=== PATIENT | female | born 1940 | race Caucasian/White ===

== ENCOUNTER → 2016-03-26 | Outpatient (CLI) | payer OTHER, MEDICARE ==
[~2016-03-26] MED LIST: ASCA500 PO; B-CO-25 PO; CINN1CAP2 PO; MAGN400T6 PO; METF1TAB53 PO; MISCTAB78 PO; OMEG10007 PO; SIMV40TA2 PO; TUMERIC CURCUMIN PO
--- NOTE | 2016-03-26 13:23 | Discharge Instructions ---
Discharge Instructions Procedure Procedure Date: Mar 26, 2016. Reason for visit: Left Calcifications. Discharge Discharge Date: Mar 26, 2016. Discharge Diagnosis: status post breast biopsy Instructions Activity Recommendations: Additional Limitations (see below) Return to School/Work: no limitations Recommended Home Diet: No Limitations Provider Instructions: ACTIVITY RECOMMENDATIONS: * No lifting, pushing, pulling or exercising the affected side for three days. RETURN TO SCHOOL/WORK: * You may return to work/school after the procedure, but do not perform any strenuous activities for 24 to 48 hours. MEDICATIONS: * Tylenol (two 325 mg) every four to six hours if needed for mild pain (if not allergic to Tylenol). DIET: * Resume previous diet. SPECIAL CARE INSTRUCTIONS: * Keep biopsy site dry for 24 hours. May shower after 24 hours, but do not soak (bathe) incision. * May remove Tegaderm (plastic patch) tomorrow AFTER showering. * Leave the steri-strips on for one week. Allow the steri-strips to fall off by themselves. If not off after one week, you may remove them. You may place a Bandaid crosswise over the strips, if desired. * Apply ice 10 minutes on and 10 minutes off as needed. * Wear a bra at bedtime to sleep more comfortably for 2-3 days. * Your referring physician should have the results after approximately 5 to 7 business days. * Call for unusual bleeding, fever, drainage, etc or if you have any questions call during normal business hours or after hours call Dr Pike, . FOLLOW UP VISIT: Follow-up with Referring Physician as scheduled. Allergies Coded Allergies: No Known Allergies (Unverified , 09/12/15) Apolonia Donovan Recommendations: Call your doctor if: * Temperature above 101 degrees * Pain not relieved by pain medicine ordered * There is increased drainage or redness from any incision * You have any unanswered questions or concerns. Your Doctors Instructions noted above were prepared by provider Rosio Pike. Patient Signature Section: Patient Instructions Signature Page Yuliet Rogers Patient (or Guardian) Signature/Date: I have read and understand the instructions given to me by my caregivers. Caregiver/RN/Doctor Signature/Date: The above-named patient and/or guardian has received patient instructions on this date. + Original Patient Signature Page (only) stays with chart. Please make copy for patient.
--- NOTE | 2016-03-26 15:47 | MAMMOGRAPHY REPORT ---
THIS REPORT HAS BEEN AMENDED. STEREOTACTIC GUIDED BIOPSY LEFT BREAST: 03/26/2016 CLINICAL HISTORY: Indeterminate calcifications in the left inferior posterior breast. PATIENT CONSENT: The procedure, risks, benefits, and alternatives of stereotactic biopsy with clip p lacement were discussed with the patient, and verbal and written consent was obtained. A timeout wa s performed immediately prior to the procedure. PROCEDURE DESCRIPTION: With stereotactic guidance, aseptic technique, and lidocaine as a local anest hetic (1% lidocaine to anesthetize the skin and 1% lidocaine with epinephrine to anesthetize the simon per tissues), the area of concern in the left inferior posterior breast was sampled multiple times w ith a 9-gauge vacuum-assisted biopsy needle (Flossonic). The path of approach was caudocranial. The specimen radiograph demonstrates calcifications to be present in the samples. A metallic marker clip was placed at the biopsy site. This was confirmed on postprocedure mammograms. Direct pressu re was applied at the biopsy site and hemostasis was readily achieved. The patient tolerated the pr ocedure without complication. She was given wound care instructions. COMPARISON: Comparison is made to exams dated: 03/12/2016 mammogram, 09/12/2015 mammogram, 08/08/2015 mammogram, 07/31/2015 mammogram, 07/25/2014 mammogram, and 07/19/2013 mammogram - [facility]. IMPRESSION: STEREOTACTIC GUIDED BIOPSY Stereotactic guided biopsy of indeterminate calcifications in the left inferior posterior breast, wi th clip placement. The patient will receive pathology results from her referring physician. Rosio Pike M.D. ah/:03/26/2016 13:25:57 Hydraulic Blocker: Mallory Werner, [facility] AMENDMENT: 04/09/2016 Rosio Pike M.D. The pathology from stereotactic biopsy of left breast calcifications was reviewed on 04/09/2016. The pathology shows atypical ductal hyperplasia with associated microcalcifications. Given the presenc e of atypia, surgical excision is recommended. Note that there was superior and lateral migration o f the biopsy clip, as discussed on the diagnostic mammogram report dated 03/26/2016.
--- NOTE | 2016-03-26 15:47 | MAMMOGRAPHY REPORT ---
UNILATERAL LEFT DIGITAL DIAGNOSTIC MAMMOGRAM: 03/26/2016 CLINICAL HISTORY: Status post left breast stereotactic biopsy. TECHNIQUE: Postprocedural left CC and ML views were obtained. COMPARISON: Comparison is made to exams dated: 03/12/2016 mammogram, 09/12/2015 mammogram, 08/17/2015 mammogram, and 07/31/2015 mammogram - [facility]. BREAST COMPOSITION: There are scattered areas of fibroglandular density in the left breast. FINDINGS: A new biopsy marker clip is seen in the left upper outer quadrant status post stereotacti c biopsy of the left inferior posterior calcifications. The postbiopsy changes are located at the s ite of the biopsied calcifications on the cc view. However, there appears to be lateral migration o f the biopsy marker clip by approximately 2.6 cm from the biopsy site. Additionally, there is super ior migration of the clip by approximately 7 cm, likely due to accordion effect. No significant pos tbiopsy hematoma is seen. IMPRESSION: POST PROCEDURE IMAGING FOR MARKER PLACEMENT New biopsy marker clip status post stereotactic biopsy of left inferior posterior calcifications. P athology results are pending. Approximately 10% of breast cancers are not detected with mammography. A negative mammographic repor t should not delay biopsy if a clinically suggestive mass is present. Roiso Pike M.D. ah/:03/26/2016 13:40:08 Business Consultant: Mallory Werner, [facility] BI-RADS Code: Post Procedure Imaging For Marker Placement
== END | disposition home or self-care (01) ==
LOC: C.MAMM 12:38
PROVIDERS: ATTEND Surgery
DX: R92.1 Mammographic calcification found on diagnostic imaging of breast (principal); N60.92 Unspecified benign mammary dysplasia of left breast; C18.9 Malignant neoplasm of colon, unspecified

== ENCOUNTER → 2016-06-23 | Outpatient (CLI) | payer OTHER, MEDICARE ==
[~2016-06-23] MED LIST changes: +ARM1 PO; +OPTIRAY 320 IV PRN
--- NOTE | 2016-06-23 17:02 | DIAGNOSTIC IMAGING REPORT ---
CT OF THE ABDOMEN AND PELVIS WITH CONTRAST CLINICAL HISTORY: Colon cancer. Breast cancer. COMPARISON STUDY: CT of the abdomen and pelvis May 14, 2015. TECHNIQUE: Following IV administration of 115 mL of Optiray-320, axial images of the abdomen and pelvis were obtained from the lung bases to the proximal femurs. Images were reviewed in the axial, sagittal, and coronal planes. IV contrast was administered without complication. Oral contrast was administered. CT DOSE: 1191.15 mGy.cm FINDINGS: The chest will be reported separately. Fatty infiltration of the liver is noted. The spleen, adrenal glands, kidneys and pancreas are normal. There is no biliary ductal dilatation status post cholecystectomy. There is no evidence for a bowel obstruction. Postsurgical findings involving the cecum are noted. There are no enlarged abdominal or pelvic lymph node. There is left colon diverticulosis without evidence for acute diverticulitis. No ascites is present. No suspicious osseous lesion is identified. IMPRESSION: No evidence of metastatic disease within the abdomen or pelvis. Electronically signed by: Giancarlo Cullen M.D. 06/23/2016 5:00 PM Dictated Date/Time: 06/23/2016 4:29 PM
--- NOTE | 2016-06-23 17:02 | DIAGNOSTIC IMAGING REPORT ---
CT OF THE CHEST WITH IV CONTRAST CLINICAL HISTORY: Breast cancer. Colon cancer. COMPARISON STUDY: Chest CT May 14, 2015. TECHNIQUE: Following IV administration of 115 mL of Optiray-320, helical axial images of the chest were obtained. Images were viewed in the axial, sagittal and coronal planes. IV contrast was administered without complication. FINDINGS: No enlarged axillary, mediastinal or hilar lymph nodes are present. The heart is mildly enlarged. This extensive coronary artery calcification. There are postsurgical findings within the left breast. The central airways are patent. Dependent airspace opacities reflect atelectasis. There are no suspicious pulmonary nodules. The bony structures are unremarkable. There is fatty infiltration of the liver. IMPRESSION: No evidence of metastatic disease within the chest. Electronically signed by: Giancarlo Cullen M.D. 06/23/2016 5:00 PM Dictated Date/Time: 06/23/2016 4:48 PM
== END | disposition home or self-care (01) ==
LOC: C.CTS 15:33
PROVIDERS: ATTEND Internal Medicine Hematology & Oncology
DX: C50.912 Malignant neoplasm of unspecified site of left female breast (principal)

== ENCOUNTER → 2016-08-05 | Outpatient (CLI) | payer OTHER, MEDICARE ==
[~2016-08-05] MED LIST changes: -OPTIRAY 320 IV PRN
--- NOTE | 2016-08-05 16:19 | MAMMOGRAPHY REPORT ---
BILATERAL DIGITAL DIAGNOSTIC MAMMOGRAM TOMOSYNTHESIS WITH CAD AND TARGETED RIGHT ULTRASOUND: 08/06/19 17 CLINICAL HISTORY: 76-year-old woman with a personal history of left breast cancer diagnosed in the a nterior periareolar breast, status post lumpectomy performed in August 2015. Recently, she was found to have clustered microcalcifications in the lateral posterior left breast for which stereotactic bi opsy was performed. This yielded atypia at needle biopsy but surgical excision yielded DCIS. No ra diation therapy. Also time of annual right mammography. TECHNIQUE: Bilateral CC and MLO 2-D digital and tomosynthesis images, spot magnification left CC an d ML views were obtained. Current study was also evaluated with a Computer Aided Detection (CAD) sy stem. COMPARISON: Comparison is made to exams dated: 03/26/2016 mammogram, 08/17/2015 mammogram, 08/08/2015 u ltrasound, 08/08/2015 mammogram, 07/31/2015 mammogram, and 07/25/2014 mammogram - [facility]. BREAST COMPOSITION: There are scattered areas of fibroglandular density in both breasts. FINDINGS: There is expected architectural distortion and surgical clips in the anterior 9:00 left br east, at the site of prior lumpectomy. New expected architectural distortion is seen in the far pos terior inferior left breast, at the site of second surgical excision which yielded DCIS. There are benign coarse and rim calcifications throughout the left breast and to a lesser degree the right rashad ast. No new suspicious grouping or cluster of microcalcifications is seen bilaterally. There are m oderate vascular calcifications in the breasts. There is a 3.7 mm nodular asymmetry in the lateral anterior right breast, best seen on the CC view (tomosynthesis slice 25), for which additional evalu ation with ultrasound was performed. No unexpected architectural distortion is seen bilaterally. Real-time high-resolution sonographic evaluation was performed in the lateral right breast. In the 10:00 periareolar axis, there is an oval parallel hypoechoic cystic-appearing mass measuring 2.5 x 2 .6 x 1.7 mm. No internal vascularity is demonstrated. In the 9:00 right breast, 1 cm from the nipp le, there is an oval parallel circumscribed anechoic benign simple cyst measuring 3.6 x 1.6 x 3.5 mm . It is unclear which of these benign-appearing masses correlate with the nodular mammographic asym metry. Nevertheless, a short interval follow-up diagnostic right mammogram and repeat targeted ultr asound is recommend to ensure stability in 6 months. IMPRESSION: ACR-BI-RADS CATEGORY 3: PROBABLY BENIGN, TARGETED ULTRASOUND ACR-BI-RADS CATEGORY 3: IN OBABLY BENIGN Follow-up bilateral diagnostic mammograms and repeat targeted ultrasound in the right 9:00 and 10:00 axes is recommended in 6 months. Postsurgical changes in the left breast should be reassessed, inc luding spot magnification views to exclude any new microcalcifications. Repeat assessment of a smal l 3.7 mm nodular asymmetry in the lateral anterior right breast should also be performed at that alma e. These results and recommendations were discussed with the patient at the time of the exam. She tent atively scheduled a follow-up appointment prior to leaving our department. Approximately 10% of breast cancers are not detected with mammography. A negative mammographic repor t should not delay biopsy if a clinically suggestive mass is present. Jackeline Ahmadi M.D. ay/:08/05/2016 15:12:51 College Tutor: Pita TALBERT(Jojo)(Frances), [facility] letter sent: Follow Up Recommended 3 BI-RADS Code: ACR-BI-RADS Category 3: Probably Benign Ultrasound BI-RADS: ACR-BI-RADS Category 3: P robably Benign
== END | disposition home or self-care (01) ==
LOC: C.MAMM 09:03
PROVIDERS: ATTEND Surgery
DX: Z85.3 Personal history of malignant neoplasm of breast (principal); N64.9 Disorder of breast, unspecified

== ENCOUNTER → 2016-09-12 | Outpatient (CLI) | payer OTHER, MEDICARE ==
[2016-09-12 13:20] LABS: BASO % 0.4 %; BASO ABS # 0.02 K/uL (0-0.2); COMPLETE YES; EOS % 1.9 %; HEMATOCRIT 40.5 % (37-47); IG% 0.2 %; LYMPH % 37.7 %; LYMPH ABS # 2.03 K/uL (1.2-3.4); MEAN CELL VOLUME 93.5 fL (80-100); MEAN CORPUSCULAR HEMOGLOBIN 31.4 pg (25-34); MEAN CORPUSCULAR HGB CONC 33.6 g/dl (32-36); MEAN PLATELET VOLUME 9.9 fL (7.4-10.4); MONO % 11.3 %; NEUT % 48.5 %; PLATELET COUNT 214 K/uL (130-400); RED BLOOD COUNT 4.33 M/uL (4.2-5.4); WHITE BLOOD COUNT 5.38 K/uL (4.8-10.8)
[2016-09-12 13:57] LABS: ESTIMATED AVERAGE GLUCOSE 123 mg/dl; HA1C FLAG Normal (Normal)
[2016-09-12 14:07] LABS: ALT/SGPT 41 U/L (12-78); AST/SGOT 28 U/L (15-37); BLOOD UREA NITROGEN 18 mg/dl (7-18); BUN/CREATININE RATIO 21.4 (10-20); CALCIUM 9.8 mg/dl (8.5-10.1); CARBON DIOXIDE 26 mmol/L (21-32); CHLORIDE 108 mmol/L (98-107); CHOLESTEROL 135 mg/dl (0-200); CREATININE 0.83 mg/dl (0.60-1.20); GLUCOSE 107 mg/dl (70-99); MAGNESIUM 2.3 mg/dl (1.8-2.4); SODIUM 142 mmol/L (136-145); TRIGLYCERIDES 119 mg/dl (0-150); VERY LOW DENSITY LIPOPROT CALC 24 mg/dl
[2016-09-12 14:12] LABS: ALB/GLOB RATIO 1.1 (0.9-2); ALKALINE PHOSPHATASE 55 U/L (45-117); CHOLESTEROL/HDL RATIO 2.1; HDL CHOLESTEROL 64 mg/dl; LDL CHOLESTEROL CALCULATED 47 mg/dl
--- NOTE | 2016-09-16 12:23 | CODING QUERY MEDICAL NECESSITY ---
SUPPORTING DIAGNOSIS NEEDED A supporting diagnosis is required for the test/procedure performed on this patient in order for us to be reimbursed by the patient's insurance. Please provide a supporting diagnosis for the following test/procedure listed below next to the test name along with your signature. *If there is no additional diagnosis for this patient that would support the following test/procedure please document that below next to the test/procedure. Test(s)/Procedure(s) that require a supporting diagnosis: * HEMOGLOBIN A1C DIAGNOSIS: Provider Signature: Date: Thank you Anisa Go [employer] Once completed, please kindly fax back to [phone] For questions please call [phone]
== END | disposition home or self-care (01) ==
LOC: C.LABBC 09:43
PROVIDERS: ATTEND Nurse Practitioner
DX: C50.912 Malignant neoplasm of unspecified site of left female breast (principal); C18.2 Malignant neoplasm of ascending colon; E78.00 Pure hypercholesterolemia, unspecified; E83.42 Hypomagnesemia; R73.03 Prediabetes

== ENCOUNTER → 2017-02-10 | Outpatient (CLI) | payer OTHER, MEDICARE ==
[~2017-02-10] MED LIST changes: -ARM1 PO
--- NOTE | 2017-02-10 14:31 | MAMMOGRAPHY REPORT ---
BILATERAL DIGITAL DIAGNOSTIC MAMMOGRAM TOMOSYNTHESIS WITH CAD AND TARGETED RIGHT ULTRASOUND: 02/11/20 17 CLINICAL HISTORY: History of left breast cancer status post lumpectomies August 2015 and April 2016. The patient has had chemotherapy but did not undergo radiation therapy. The patient presents for f ollow-up. She denies any current complaints. TECHNIQUE: Breast tomosynthesis in addition to standard 2D mammography was performed. Current study was also evaluated with a Computer Aided Detection (CAD) system. Bilateral CC and MLO 2-D and tomosy nthesis images and spot magnification left CC and ML views were obtained. COMPARISON: Comparison is made to exams dated: 08/05/2016 ultrasound, 08/05/2016 mammogram, 03/26/2016 m ammogram, 03/12/2016 mammogram, 09/12/2015 mammogram, and 07/31/2015 mammogram - [facility]. BREAST COMPOSITION: There are scattered areas of fibroglandular density in both breasts. FINDINGS: There are stable post surgical changes in the left central/9:00 breast, including stable de nsity, architectural distortion, and surgical clips at the surgical bed. A small fat density mass is also seen at the surgical bed, consistent with fat necrosis. Spot magnification views of the lumpec saul bed demonstrate coarse benign calcifications without evidence of a suspicious mass or other susp icious mammographic abnormality. The remainder of both breasts are stable mammographically compared to prior exams, without suspicious masses, calcifications, or areas of architectural distortion noted . Small nodular asymmetry in the right lateral anterior breast is less prominent on the current exam . Other scattered benign-appearing calcifications bilaterally are stable. Targeted ultrasound was performed of the areas of the previously seen right breast masses. In the ri ght breast at 9:00, 1 cm from the nipple, again noted is an oval anechoic benign simple cyst measurin g 4 x 4 mm. The previously seen hypoechoic mass in the right 10:00 breast is no longer evident. No suspicious masses were seen in this region. IMPRESSION: ACR-BI-RADS CATEGORY 3: PROBABLY BENIGN, TARGETED ULTRASOUND ACR-BI-RADS CATEGORY 3: PRO BABLY BENIGN Stable postsurgical changes in the left breast status post lumpectomies, without mammographic evidenc e of malignancy in either breast. Recommend follow-up diagnostic tomosynthesis mammograms and possib le ultrasound of the left breast in 6 months to reevaluate posttreatment changes. The patient has been verbally notified of the results. Approximately 10% of breast cancers are not detected with mammography. A negative mammographic report should not delay biopsy if a clinically suggestive mass is present. Rosio Pike M.D. ah/:02/10/2017 12:04:12 Auto Winder: Mallory TALBERT(Jojo)(Frances), [facility] letter sent: Follow Up Recommended 3 BI-RADS Code: ACR-BI-RADS Category 3: Probably Benign Ultrasound BI-RADS: ACR-BI-RADS Category 3: Pr obably Benign
== END | disposition home or self-care (01) ==
LOC: C.MAMM 08:48
PROVIDERS: ATTEND Surgery
DX: Z90.13 Acquired absence of bilateral breasts and nipples (principal)

== ENCOUNTER → 2017-03-18 | Outpatient (CLI) | payer OTHER, MEDICARE ==
[~2017-03-18] MED LIST changes: +ARM1 PO; -MISCTAB78 PO
[2017-03-18 13:07] LABS: BASO % 0.8 %; BASO ABS # 0.04 K/uL (0-0.2); HEMATOCRIT 42.8 % (37-47); HEMOGLOBIN 14.2 g/dL (12.0-16.0); IG# 0.01 K/uL (0.00-0.02); LYMPH % 41.1 %; LYMPH ABS # 2.09 K/uL (1.2-3.4); MEAN CELL VOLUME 95.5 fL (80-100); MEAN CORPUSCULAR HEMOGLOBIN 31.7 pg (25-34); MEAN CORPUSCULAR HGB CONC 33.2 g/dl (32-36); MEAN PLATELET VOLUME 9.9 fL (7.4-10.4); MONO % 11.6 %; MONO ABS # 0.59 K/uL (0.11-0.59); NEUT % 44.3 %; NEUT ABS # 2.26 K/uL (1.4-6.5); PLATELET COUNT 210 K/uL (130-400); RED CELL DISTRIBUTION WIDTH CV 13.1 % (11.5-14.5); RED CELL DISTRIBUTION WIDTH SD 45.4 fL (36.4-46.3); WHITE BLOOD COUNT 5.09 K/uL (4.8-10.8)
[2017-03-18 13:35] LABS: ALT/SGPT 36 U/L (12-78); BLOOD UREA NITROGEN 16 mg/dl (7-18); CALCIUM 10.1 mg/dl (8.5-10.1); CARBON DIOXIDE 25 mmol/L (21-32); CREATININE 0.83 mg/dl (0.60-1.20); GLUCOSE 115 mg/dl (70-99); POTASSIUM 3.9 mmol/L (3.5-5.1); SODIUM 138 mmol/L (136-145)
[2017-03-18 13:40] LABS: ALKALINE PHOSPHATASE 53 U/L (45-117); AST/SGOT 24 U/L (15-37); CHOLESTEROL 148 mg/dl (0-200); LDL CHOLESTEROL CALCULATED 47 mg/dl; TOTAL PROTEIN 7.6 gm/dl (6.4-8.2)
[2017-03-19 04:37] LABS: HEMOGLOBIN A1C 5.8 % (4.5-5.6)
== END | disposition home or self-care (01) ==
LOC: C.LABBC 09:19
PROVIDERS: ATTEND Nurse Practitioner Family
DX: Z11.59 Encounter for screening for other viral diseases (principal); E88.81 Metabolic syndrome and other insulin resistance; E78.00 Pure hypercholesterolemia, unspecified; E55.9 Vitamin D deficiency, unspecified; R73.03 Prediabetes; E83.42 Hypomagnesemia

== ENCOUNTER → 2017-04-22 | Outpatient (CLI) | payer OTHER, MEDICARE ==
[2017-04-22 11:00] LABS: BASO % 0.7 %; BASO ABS # 0.04 K/uL (0-0.2); EOS % 1.9 %; EOS ABS # 0.11 K/uL (0-0.5); HEMATOCRIT 41.7 % (37-47); IG# 0.01 K/uL (0.00-0.02); LYMPH % 39.9 %; LYMPH ABS # 2.37 K/uL (1.2-3.4); MEAN CELL VOLUME 94.3 fL (80-100); MEAN CORPUSCULAR HEMOGLOBIN 31.7 pg (25-34); MEAN CORPUSCULAR HGB CONC 33.6 g/dl (32-36); MEAN PLATELET VOLUME 9.8 fL (7.4-10.4); MONO % 11.1 %; MONO ABS # 0.66 K/uL (0.11-0.59); NEUT % 46.2 %; NEUT ABS # 2.75 K/uL (1.4-6.5); PLATELET COUNT 198 K/uL (130-400); RED CELL DISTRIBUTION WIDTH CV 12.9 % (11.5-14.5); RED CELL DISTRIBUTION WIDTH SD 44.9 fL (36.4-46.3); WHITE BLOOD COUNT 5.94 K/uL (4.8-10.8)
[2017-04-22 14:06] LABS: ALBUMIN 3.9 gm/dl (3.4-5.0); ALKALINE PHOSPHATASE 52 U/L (45-117); ALT/SGPT 52 U/L (12-78); BLOOD UREA NITROGEN 17 mg/dl (7-18); CALCIUM 10.1 mg/dl (8.5-10.1); CARBON DIOXIDE 29 mmol/L (21-32); CREATININE 0.82 mg/dl (0.60-1.20); GLUCOSE 115 mg/dl (70-99); POTASSIUM 3.9 mmol/L (3.5-5.1); SODIUM 138 mmol/L (136-145); TOTAL PROTEIN 7.3 gm/dl (6.4-8.2)
[2017-04-22 14:07] LABS: AST/SGOT 29 U/L (15-37)
== END | disposition home or self-care (01) ==
LOC: C.LABBC 09:12
PROVIDERS: ATTEND Internal Medicine Hematology & Oncology
DX: C50.912 Malignant neoplasm of unspecified site of left female breast (principal)

== ENCOUNTER → 2017-08-11 | Outpatient (CLI) | payer OTHER, MEDICARE ==
--- NOTE | 2017-08-12 14:23 | MAMMOGRAPHY REPORT ---
UNILATERAL LEFT DIGITAL DIAGNOSTIC MAMMOGRAM TOMOSYNTHESIS WITH CAD: 08/11/2017 CLINICAL HISTORY: 77-year-old woman with a personal history of left breast DCIS status post lumpectom ies in August 2015 and April 2016. She presents for continued close follow-up in the left breast as she did not undergo radiation therapy. TECHNIQUE: Left breasttomosynthesis in addition to standard 2D mammography was performed. Spot magn ification left CC and ML views were also obtained. Current study was also evaluated with a Computer Aided Detection (CAD) system. COMPARISON: Comparison is made to exams dated: 02/10/2017 ultrasound, 02/10/2017 mammogram, 7 ultrasound, 08/05/2016 mammogram, 07/31/2015 mammogram, and 07/25/2014 mammogram - [facility]. BREAST COMPOSITION: There are scattered areas of fibroglandular density in the left breast. FINDINGS: There are moderate vascular calcifications in the left breast. Numerous benign coarse and rim calcifications. There is expected architectural distortion and skin irregularity in the anterior lower inner left breast at the site of a prior lumpectomy. A second lumpectomy site in the lower ou ter middle to posterior left breast is less conspicuous and no surgical clips are in place in the sec ond area. There are a few stable punctate microcalcifications in the left breast. No new suspicious grouping or cluster of microcalcifications identified. No obvious new mass, unexpected architectura l distortion or developing asymmetry. Recommend continued close follow-up in the left breast with re peat diagnostic mammography and possible ultrasound in 6 months to ensure longer stability. Annual r ight mammography will also be due at that time. IMPRESSION: ACR-BI-RADS CATEGORY 3: PROBABLY BENIGN Stable postsurgical changes in the left breast, without mammographic evidence of malignancy. Recomme nd continued close follow-up left diagnostic tomosynthesis mammography in 6 months to ensure longer s tability. Annual right mammography will also be due at that time. These results and recommendations were discussed with the patient at the time of the exam. Approximately 10% of breast cancers are not detected with mammography. A negative mammographic report should not delay biopsy if a clinically suggestive mass is present. Jackeline Ahmadi M.D. ay/:08/11/2017 15:01:30 Film Projector Operator: Ramona Sosa RT(R)(M), [facility] letter sent: Follow Up Recommended 3 BI-RADS Code: ACR-BI-RADS Category 3: Probably Benign
== END | disposition home or self-care (01) ==
LOC: C.MAMM 14:00
PROVIDERS: ATTEND Nurse Practitioner Family
DX: R92.8 Other abnormal and inconclusive findings on diagnostic imaging of breast (principal)

== ENCOUNTER → 2017-10-30 | Outpatient (CLI) | payer OTHER, MEDICARE ==
[2017-10-30 10:55] LABS: BASO % 0.5 %; BASO ABS # 0.03 K/uL (0-0.2); EOS % 1.6 %; EOS ABS # 0.09 K/uL (0-0.5); HEMATOCRIT 43.2 % (37-47); HEMOGLOBIN 14.1 g/dL (12.0-16.0); IG# 0.01 K/uL (0.00-0.02); LYMPH % 39.6 %; LYMPH ABS # 2.26 K/uL (1.2-3.4); MEAN CELL VOLUME 95.2 fL (80-100); MEAN CORPUSCULAR HEMOGLOBIN 31.1 pg (25-34); MEAN CORPUSCULAR HGB CONC 32.6 g/dl (32-36); MEAN PLATELET VOLUME 10.3 fL (7.4-10.4); MONO % 9.5 %; MONO ABS # 0.54 K/uL (0.11-0.59); NEUT % 48.6 %; NEUT ABS # 2.77 K/uL (1.4-6.5); PLATELET COUNT 224 K/uL (130-400); RED CELL DISTRIBUTION WIDTH CV 13.4 % (11.5-14.5); RED CELL DISTRIBUTION WIDTH SD 46.4 fL (36.4-46.3)
[2017-10-30 11:20] LABS: ALKALINE PHOSPHATASE 51 U/L (45-117); ALT/SGPT 43 U/L (12-78); AST/SGOT 35 U/L (15-37); BLOOD UREA NITROGEN 13 mg/dl (7-18); CALCIUM 9.7 mg/dl (8.5-10.1); CARBON DIOXIDE 26 mmol/L (21-32); CREATININE 0.83 mg/dl (0.60-1.20); GLUCOSE 109 mg/dl (70-99); POTASSIUM 4.1 mmol/L (3.5-5.1); SODIUM 140 mmol/L (136-145); TOTAL PROTEIN 7.6 gm/dl (6.4-8.2)
[2017-11-03 22:40] LABS: CA 27.29** TC 20123E 26 U/ML (<38); CA15-3 BREAST ANTIGEN 5819 16 U/mL (<32)
== END | disposition home or self-care (01) ==
LOC: C.LABBC 08:43
PROVIDERS: ATTEND Internal Medicine Hematology & Oncology
DX: C50.912 Malignant neoplasm of unspecified site of left female breast (principal)

== ENCOUNTER → 2017-10-30 | Outpatient (CLI) | payer OTHER, MEDICARE ==
[~2017-10-30] MED LIST changes: +OPTIRAY 320 IV PRN
--- NOTE | 2017-10-30 13:13 | DIAGNOSTIC IMAGING REPORT ---
CT (CHEST) THORAX WITH CT DOSE: HISTORY: Breast carcinoma 10/30/17 0844 CREA 0.83 TECHNIQUE: Multiaxial CT images of the chest were performed following the intravenous administration of contrast. A dose lowering technique was utilized adhering to the principles of ALARA. COMPARISON: 06/23/2016 FINDINGS: The lungs are clear. The mediastinal vascular structures are within normal limits. No mediastinal or hilar lymphadenopathy. No pleural effusion or pneumothorax. Limited views of the upper abdomen demonstrate a normal liver and spleen. IMPRESSION: No significant abnormality identified within the chest. No change from the prior study The above report was generated using voice recognition software. It may contain grammatical, syntax or spelling errors. Electronically signed by: Rei Woodall M.D. 10/30/2017 1:12 PM Dictated Date/Time: 10/30/2017 1:06 PM
--- NOTE | 2017-10-30 13:18 | DIAGNOSTIC IMAGING REPORT ---
ABD/PELVIS IV AND ORAL CONT CLINICAL HISTORY: 77 years-old Female presenting with history of breast cancer. TECHNIQUE: Multidetector CT of the abdomen and pelvis was performed after the administration of oral and intravenous contrast. IV contrast: 91 mL of Optiray 320. A dose lowering technique was used consistent with the principles of ALARA (as low as reasonably achievable). COMPARISON: 07/20/2016. CT DOSE (mGy.cm): The estimated cumulative dose is 1585.61 mGy.cm. FINDINGS: Investments Manager topogram: Cholecystectomy clips noted. Lung bases: Minimal basilar opacities, likely atelectasis. Normal heart size. Coronary artery and mitral annular calcification. No pericardial or pleural effusion. Liver: Normal morphology. Density suggestive of hepatic steatosis. Parenchymal calcification noted in the right hepatic lobe, which may suggest a history of granulomatous infection. No focal lesion. Patent hepatic vasculature. Biliary: No intrahepatic or extrahepatic biliary ductal dilatation. Gallbladder surgically absent. Pancreas: Mild parenchymal atrophy. Spleen: Normal. Adrenal glands: Normal. Kidneys and ureters: Questionable punctate nonobstructing calculus at the lower pole the right kidney. Parenchyma normal. No hydronephrosis. Mild perinephric fat infiltration, nonspecific. Ureters normal. Bladder: Normal. Pelvic organs: Uterus surgically absent. No adnexal masses. Bowel: Extensive diverticulosis of the descending and sigmoid colon. No wall thickening or pericolonic inflammatory change. No bowel obstruction. Postsurgical changes of appendectomy. Large duodenal diverticulum at the level of the duodenal bulb. No associated inflammatory change. Numerous small bowel diverticula noted in the jejunum. No associated inflammatory change. Peritoneal cavity: No free fluid or intraperitoneal gas. Lymph nodes: No enlarged lymph nodes in the abdomen or pelvis. Vasculature: Atherosclerosis of the normal caliber abdominal aorta. IVC patent. Abdominal wall: Normal. Musculoskeletal: Degenerative changes of the spine. IMPRESSION: 1. No evidence of metastatic disease in the abdomen or pelvis. 2. Findings suggest hepatic steatosis. 3. Diverticulosis. No evidence of diverticulitis. Electronically signed by: Humphrey Colbert M.D. 10/30/2017 1:16 PM Dictated Date/Time: 10/30/2017 1:07 PM
== END | disposition home or self-care (01) ==
LOC: C.CTS 12:40
PROVIDERS: ATTEND Internal Medicine Hematology & Oncology
DX: C50.912 Malignant neoplasm of unspecified site of left female breast (principal); C18.2 Malignant neoplasm of ascending colon; K57.90 Diverticulosis of intestine, part unspecified, without perforation or abscess without bleeding